=== PATIENT | male | born 1985 | race Caucasian/White ===

== ENCOUNTER 2020-09-02 09:00 | Outpatient (RCR) | payer BC, SELFPAY ==
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
--- NOTE | 2020-08-12 14:06 | PCPTNOTE ---
Patient called & cancelled scheduled appointment this date due to being stuck on the job at work. Will continue per Plan of care.
--- NOTE | 2020-08-26 15:10 | PCPTNOTE ---
Patient called & cancelled scheduled appointment this date-left message but no reason given.
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
== END 2020-09-04 11:06 | disposition home or self-care (01) ==
LOC: ANHPT 09:00
PROVIDERS: PCP Internal Medicine; Referring Provider Internal Medicine; Visit Provider Internal Medicine
DX: Z47.81 Encounter for orthopedic aftercare following surgical amputation (principal); Z89.512 Acquired absence of left leg below knee
CPT/HCPCS: 97110; 97116; 97162; 97530; 97761

== ENCOUNTER 2024-05-07 08:53 | Outpatient (CLI) | payer BC, SELFPAY ==
--- NOTE | ~2024-05-07 | MR_ITS ---
EXAMINATION: MR shoulder RT wo con DATE: 05/07/2024 09:37 INDICATION: Right shoulder pain TECHNIQUE: Magnetic resonance imaging (MRI) of the right shoulder was performed without intravenous c ontrast. Sequences included axial PD-weighted FS FSE, coronal oblique PD-weighted FS FSE, coronal obl ique T2-weighted FS FSE, sagittal PD-weighted FS FSE, and sagittal T1-weighted SE. COMPARISON: None. FINDINGS: Coracoacromial arch: The acromion undersurface is curved in morphology (type II). The coracoacromial ligament is normal. M ild acromioclavicular osteoarthritis. Rotator cuff: Supraspinatus tendinopathy without tear. The infraspinatus and teres minor tendons are normal. Subsca pular tendinopathy without tear. Normal rotator cuff muscle bulk and signal. Biceps tendon, glenoid labrum and glenohumeral cartilage: Long head of the biceps tendon is normal. Complex with absent anterosuperior glenoid labrum and thick ened cordlike middle glenohumeral ligament. There is a superior, anterior to posterior tear of the gl enoid labrum (SLAP tear) which extends from the 11:30-12:30 position. Glenohumeral cartilage is krista l. Fluid: Small amount of fluid in the long head biceps tendon sheath which is disproportionate to the physiolo gic amount fluid in the glenohumeral joint space consistent with mild bicipital tenosynovitis. No loo se osteochondral bodies. Small amount of fluid in the subacromial/subdeltoid bursa consistent with mi ld bursitis. Bones: Low signal intensity bone island at the humeral head corresponding to the sclerotic lesion on prior r adiographs. Bone marrow signal is otherwise normal with no edema, fracture or pathologic marrow repla cing process. IMPRESSION: 1. Labrum Monico complex and small SLAP tear at the superior glenoid labrum. 2. Mild supraspinatus and subscapularis tendinopathy without tear. 3. Mild bicipital tenosynovitis and mild subacromial/subdeltoid bursitis. 4. Mild acromioclavicular osteoarthritis. Reviewed, dictated and finalized at location [facility] IMPRESSION: 1. Labrum Concord complex and small SLAP tear at the superior glenoid labrum. 2. Mild supraspinatus and subscapularis tendinopathy without tear. 3. Mild bicipital tenosynovitis and mild subacromial/subdeltoid bursitis. 4. Mild acromioclavicular osteoarthritis.
== END 2024-05-07 08:54 | disposition home or self-care (01) ==
PROVIDERS: PCP Nurse Practitioner Family; Visit Provider Nurse Practitioner Family
DX: S43.431A Superior glenoid labrum lesion of right shoulder, initial encounter (principal); X58.XXXA Exposure to other specified factors, initial encounter; M75.81 Other shoulder lesions, right shoulder; M65.911 Unspecified synovitis and tenosynovitis, right shoulder; M75.51 Bursitis of right shoulder; M19.011 Primary osteoarthritis, right shoulder
CPT/HCPCS: 73221